=== PATIENT | female | born 2000 ===

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

== ENCOUNTER 2022-06-29 09:15 | Inpatient (IN) ==
[2022-06-29 09:43] LABS: Mucus,Urine Many /LPF (Occasional); RBC,Urine 1 /HPF (0-4); Squamous Epithelial Cell,Urine Few /HPF (0-10)
[2022-06-29 09:44] LABS: Urine Appearance Clear (Clear); Urine Color Dark Yellow (Yellow)
[2022-06-29 09:45] LABS: Bilirubin,Urine Small mg/dL (Negative); Blood, Urine Negative (Negative); Glucose,Urine (UA) Negative (Negative); Ketones,Urine Trace mg/dL (Negative); Nitrite,Urine Negative (Negative); Protein,Urine 30 mg/dL (Negative); Urine Specific Gravity 1.025 (1.001-1.035); Urine Urobilinogen 0.2 eU/dL (<2.0); Urine pH 6.5 (4.5-8.0)
[2022-06-29] MEDS ORDERED: LACTATED RINGERS 1,000 ML IV ONE (10:15)
[2022-06-29] MEDS ORDERED: CARBOPROST TROMETHAMINE 250 MCG/ML AMP IM PRN (11:22)
[2022-06-29] MEDS ORDERED: CITRIC ACID/SODIUM CITRATE 30 ML UDCUP PO ONE (11:22)
[2022-06-29] MEDS ORDERED: OXYTOCIN/LR 20 UNIT/1,000 ML BAG IV ONE ×3 (11:22→15:49)
[2022-06-29] MEDS ORDERED: TRANEXAMIC ACID 1,000 MG in SODIUM CHLORIDE 0.9% 100 ML IV PRN (11:22)
[2022-06-29] MEDS ORDERED: FAMOTIDINE 20 MG/2 ML VIAL IV ONE (11:22)
[2022-06-29] MEDS ORDERED: ceFAZolin 2,000 MG/50 ML DUPLEX IV ONE (11:22)
[2022-06-29] MEDS ORDERED: METHYLERGONOVINE 0.2 MG/1 ML AMP IM PRN (11:22)
[2022-06-29] MEDS ORDERED: miSOPROStoL 200 MCG TABLET RECTAL PRN (11:22)
[2022-06-29] MEDS ORDERED: CARBOPROST TROMETHAMINE 250 MCG/ML AMP IM ONE (11:47)
[2022-06-29] MEDS ORDERED: miSOPROStoL 200 MCG TABLET ONE (11:47)
[2022-06-29] MEDS ORDERED: METHYLERGONOVINE 0.2 MG/1 ML AMP ONE (11:47)
[2022-06-29] MEDS ORDERED: ACETAMINOPHEN INJ 1,000 MG/100 ML VIAL IV ONE (11:48)
[2022-06-29] MEDS ORDERED: KETOROLAC 30 MG/1 ML VIAL ONE (11:48)
[2022-06-29] MEDS ORDERED: BUPIVACAINE MPF 0.5% 30 ML VIAL ONE ×2 (11:48→11:55)
[2022-06-29] MEDS ORDERED: ONDANSETRON 4 MG/2 ML VIAL ONE (11:48)
[2022-06-29] MEDS ORDERED: PHENYLEPHRINE 1 MG/10 ML SYRINGE IV ONE (11:48)
[2022-06-29] MEDS ORDERED: buprenorphine HCL 0.3 MG/ML VIAL ONE (11:48)
[2022-06-29] MEDS ORDERED: LACTATED RINGERS 1,000 ML IV SCH (12:00)
[2022-06-29 12:07] LABS: Basophils % 0.1 % (0.0-0.8); Eosinophils % 0.2 % (0.00-10.9); Hematocrit 32.3 VOL% (35.7-47.0); Hemoglobin 10.4 GM/DL (12.0-16.0); Immature Granulocytes % 0.6 %; Immature Granulocytes Absolute 0.05 #; Lymphocytes # 1.9 10*3/uL (1.4-4.0); Lymphocytes % 22.5 % (21.3-54.2); Mean Corpuscular HGB Conc 32.2 GM/DL (32-36); Mean Corpuscular Volume 83.9 FL (87-102); Mean Platelet Volume 9.7 FL (9.6-12.0); Monocytes # 0.5 10*3/uL (0.11-0.8); Monocytes % 6.4 % (1.7-12.7); Neutrophils % 70.2 % (38.7-73.9); Platelet Count 199 T/CUMM (130-400); Red Blood Count 3.85 MC/CUMM (3.8-5.5); Red Cell Distribution Width 14.5 % (9.3-17.3); White Blood Count 8.3 T/CUMM (4-12)
[2022-06-29 12:29] LABS: Albumin 2.4 G/DL (3.4-5.0); Bilirubin,Total 0.4 MG/DL (0.20-1.00); Calcium 8.4 MG/DL (8.5-10.1); Osmolality,Calculated 269.8 MOS/KG (273-304); Potassium 3.9 MMOL/L (3.5-5.1); Total Protein 6.2 G/DL (6.4-8.2)
[2022-06-29] MEDS ORDERED: fentaNYL 100 MCG/2 ML VIAL ONE (13:00)
[2022-06-29] MEDS ORDERED: MIDAZOLAM 2 MG/2 ML VIAL ONE (13:00)
[2022-06-29 13:08] LABS: Urine Appearance Clear (Clear); Urine Color Yellow (Yellow)
[2022-06-29 13:09] LABS: Bilirubin,Urine Negative (Negative); Blood, Urine Negative (Negative); Glucose,Urine (UA) Negative (Negative); Ketones,Urine Negative (Negative); Nitrite,Urine Negative (Negative); Protein,Urine Negative (Negative); Urine Specific Gravity 1.015 (1.001-1.035); Urine Urobilinogen < 2.0 eU/dL (<2.0)
[2022-06-29 13:11] LABS: Cord Venous Blood HCO3 22.9 MMOL/L; Cord Venous Blood PCO2 41.9 MMHG; Cord Venous Blood PO2 44.7
[2022-06-29 13:11] LABS: Mucus,Urine Few /LPF (Occasional); RBC,Urine 1 /HPF (0-4); Squamous Epithelial Cell,Urine Occasional /HPF (0-10)
[2022-06-29 13:14] LABS: Cord Arterial Blood HCO3 20.9 MMOL/L
[2022-06-29] MEDS ORDERED: WITCH HAZEL PADS 100/JAR TOP PRN (15:49)
[2022-06-29] MEDS ORDERED: HYDROCORTISONE 2.5% RECTAL CREAM 30 GM TUBE TOP PRN (15:49)
[2022-06-29] MEDS ORDERED: MEASLES/MUMPS/RUBELLA VACCINE 0.5 ML VIAL SUBCUT ONE (15:49)
[2022-06-29] MEDS ORDERED: BISACODYL 10 MG SUPP RECTAL PRN (15:49)
[2022-06-29] MEDS ORDERED: ACETAMINOPHEN 325 MG TABLET PO PRN (15:49)
[2022-06-29] MEDS ORDERED: DIPH/TET/ACEL PERT BOOSTER VACCINE 0.5 ML VIAL IM ONE (15:49)
[2022-06-29] MEDS ORDERED: LANOLIN 50% CREAM 0.3 OZ TUBE TOP PRN (15:49)
[2022-06-29] MEDS ORDERED: oxyCODONE/ACETAMINOPHEN 5-325 MG TABLET PO PRN (15:49)
[2022-06-29] MEDS ORDERED: RHO(D) IMMUNE GLOBULIN 300 MCG SYRINGE IM ONE (15:49)
[2022-06-29] MEDS ORDERED: BENZOCAINE 20%/MENTHOL 0.5% SPRAY 56 GM CAN TOP PRN (15:49)
[2022-06-29] MEDS ORDERED: ONDANSETRON 4 MG/2 ML VIAL IV PRN (15:49)
[2022-06-29] MEDS: KETOROLAC 30 MG/1 ML VIAL IV SCH (21:01)
[2022-06-29] MEDS: ACETAMINOPHEN 500 MG TABLET PO SCH (21:02)
[2022-06-30 05:08] LABS: Basophils % 0.2 % (0.0-0.8); Eosinophils % 0.5 % (0.00-10.9); Hematocrit 26.2 VOL% (35.7-47.0); Hemoglobin 8.5 GM/DL (12.0-16.0); Immature Granulocytes % 0.5 %; Immature Granulocytes Absolute 0.04 #; Lymphocytes # 1.8 10*3/uL (1.4-4.0); Lymphocytes % 21.5 % (21.3-54.2); Mean Corpuscular HGB Conc 32.4 GM/DL (32-36); Mean Corpuscular Volume 82.9 FL (87-102); Monocytes # 0.5 10*3/uL (0.11-0.8); Neutrophils % 71.3 % (38.7-73.9); Platelet Count 174 T/CUMM (130-400); Red Blood Count 3.16 MC/CUMM (3.8-5.5); Red Cell Distribution Width 14.1 % (9.3-17.3); White Blood Count 8.2 T/CUMM (4-12)
[2022-06-30] MEDS: KETOROLAC 30 MG/1 ML VIAL IV SCH ×2 (05:13→19:00)
[2022-06-30] MEDS: ACETAMINOPHEN 500 MG TABLET PO SCH ×2 (05:14→19:00)
[2022-06-30] MEDS: oxyCODONE/ACETAMINOPHEN 5-325 MG TABLET PO PRN ×2 (09:19→14:29)
[2022-06-30] MEDS: DOCUSATE SODIUM 100 MG CAPSULE PO SCH ×3 (09:19→20:12)
[2022-06-30] MEDS: IBUPROFEN 800 MG TABLET PO PRN ×2 (14:29→23:51)
[2022-07-01] MEDS ORDERED: MAGNESIUM HYDROXIDE SUSP 30 ML UDCUP PO PRN (05:53)
[2022-07-01 09:52] VITALS: BP 120/58
[2022-07-01] MEDS: oxyCODONE/ACETAMINOPHEN 5-325 MG TABLET PO PRN (10:16)
[2022-07-01] MEDS: DOCUSATE SODIUM 100 MG CAPSULE PO SCH (10:16)
[2022-07-01] MEDS: IBUPROFEN 800 MG TABLET PO PRN (10:16)
== END 2022-07-01 13:20 | disposition home or self-care (01) | DRG 540 ==
LOC: N.LD 09:15 → N.OB 06-30 09:55
PROVIDERS: ADMIT Specialist; ATTEND Specialist
PROC: LDCSECT (ICD-10-PCS; 2022-06-29 12:30)